=== PATIENT | female | born 1945 | race Caucasian/White ===

== ENCOUNTER 2018-04-25 08:47 | Day surgery (SDC) | payer MEDICARE ==
[~2018-04-25] VITALS: Ht 157.5 cm; Wt 77.1 kg
[~2018-04-25 08:47] MED LIST: AMLODIPINE5 MG PO; AMOXICILLIN500 MG PO; BENZONATATE200 MG PO; BL IBUPROFEN200 MG PO; CIPROFLOXACN500 MG PO; HUMIR1 SC; MEDDOSEPAK PO; ROBITUSSIN AC10 ML PO; ZITHROMAX250 MG PO; [UNRECOGNIZED DRUG - OTHER] SC
[2018-04-25 11:30] VITALS: BP 132/77
== END 2018-04-25 11:30 | disposition home or self-care (01) ==
LOC: ENDO 08:47
PROVIDERS: ATTEND Surgery
PROC: 0DJD8ZZ Inspection of Lower Intestinal Tract, Via Natural or Artificial Opening Endoscopic (ICD-10-PCS; principal; 2018-04-25)
DX: Z12.11 Encounter for screening for malignant neoplasm of colon (principal)

== ENCOUNTER 2022-02-01 15:32 | Observation (INO) | payer MEDICARE ==
[~2022-02-01] VITALS: Ht 157.5 cm; Wt 65.0 kg
--- NOTE | 2022-02-01 15:59 | NUR ---
PT TO ROOM VIA WC
[2022-02-01 17:14] LABS: HEMATOCRIT 42.5 % (37.0-47.0); HEMOGLOBIN 13.4 g/dl (12.0-16.0); IMMATURE GRANULOCYTES 0.6 % (0.0-5.0); MEAN CELL VOLUME 77.7 fL CALC (80.0-100.0); MEAN CORPUSCULAR HGB 24.5 pG CALC (26.0-32.0); MEAN CORPUSCULAR HGB CONC 31.5 g/dL CAL (32.0-36.0); NEUT# 2.39 thou/uL (2.00-7.15); RED BLOOD COUNT 5.47 mill/uL (4.20-5.60); RED CELL DISTRI WIDTH 16.6 % (11.5-15.5)
[2022-02-01 17:37] LABS: ALBUMIN 3.2 g/dL (3.2-5.0); ALKALINE PHOSPHATASE 90 u/l (38-126); ANION GAP 18 (6-22 (CALC)); BUN 11 mg/dL (8-23); BUN/CREATININE RATIO 17 (12-20 (CALC)); CARBON DIOXIDE 24 mmol/l (22-30); CHLORIDE 96 mmol/l (95-108); CREATININE 0.6 mg/dL (0.5-1.0); GFR FOR AFR.AMER. > 60 ML/MIN (>=60 (CALC)); GFR OTHER RACES > 60 ML/MIN (>=60 (CALC)); LIPASE 114 u/l (23-300); SGOT/AST 23 u/l (9-36); SODIUM 134 mmol/l (137-146); TOTAL PROTEIN 6.9 g/dL (6.3-8.2)
[2022-02-01 17:39] LABS: BILIRUBIN, TOTAL 0.9 mg/dL (0.0-1.4)
--- NOTE | 2022-02-01 19:38 | NUR ---
LYING IN BED RESTING QUIETLY. DENIES NAUSEA, VOMITING, PAIN OR DISCOMFORT. NO ACUTE DISTRESS NOTED AT THIS TIME. AT BEDSIDE. HOB ELEVATED FOR COMFORT. NOT ACUTE DISTRESS NOTED. WILL CONTINUE WITH PLAN OF CARE.
--- NOTE | 2022-02-01 21:13 | NUR ---
PATIENT TO BE ADMITTED TO HOSPITAL. SHE IS AWARE AND AGREEABLE WITH PLAN OF CARE. DENIES PAIN, DISCOMFORT, NAUSEA, OR VOMITING. NO ACUTE DISTRESS NOTED AT THIS TIME. CALL LIGHT IN REACH. WILL CONTINUE TO MONITOR.
--- NOTE | 2022-02-01 22:18 | NUR ---
PATIENT UP TO BSC. VOIDED APPROXIMATELY 200 ML. INCREASE HEART RATE ON WHILE GETTING UP. HR 123. PATIENT DENIES CHEST PAIN, DISCOMFORM, DIZZINESS, OR WEAKNESS. MD NOTIFIED. WILL CONTINUE WITH PLAN OF CARE.
[2022-02-01 22:41] VITALS: BP 145/74
--- NOTE | 2022-02-01 22:46 | NUR ---
BEDSIDE REPORT GIVEN TO [place] ROBLEDO ON TELE. ALERT AND PLEASANT. DENIES PAIN OR DISCOMFORYT. NO ACUTE DISTRESS NOTED. CALL LIGHT IN REACH. BELONGINGS [employer] JACKET, APPLE DRESS, AND BLACK SHOES SENT TO FLOOR WITH PATIENT. NO ACUTE DISTRESS NOTED.
[2022-02-02] VITALS (7 sets, daily range): BP systolic 132–148; BP diastolic 66–77
[2022-02-02 06:04] LABS: MEAN CELL VOLUME 77.1 fL CALC (80.0-100.0); MEAN CORPUSCULAR HGB 24.5 pG CALC (26.0-32.0); MEAN CORPUSCULAR HGB CONC 31.8 g/dL CAL (32.0-36.0); RED BLOOD COUNT 4.45 mill/uL (4.20-5.60); RED CELL DISTRI WIDTH 16.5 % (11.5-15.5)
[2022-02-02 06:07] LABS: HEMATOCRIT 34.3 % (37.0-47.0); HEMOGLOBIN 10.9 g/dl (12.0-16.0)
[2022-02-02 06:42] LABS: ANION GAP 11 (6-22 (CALC)); BUN 8 mg/dL (8-23); BUN/CREATININE RATIO 17 (12-20 (CALC)); CARBON DIOXIDE 23 mmol/l (22-30); CHLORIDE 102 mmol/l (95-108); CREATININE 0.5 mg/dL (0.5-1.0); GFR FOR AFR.AMER. > 60 ML/MIN (>=60 (CALC)); GFR OTHER RACES > 60 ML/MIN (>=60 (CALC)); MAGNESIUM 1.6 mg/dL (1.6-2.3); POTASSIUM 3.6 mmol/l (3.5-5.1); SODIUM 134 mmol/l (137-146)
--- NOTE | 2022-02-02 08:00 | NUR ---
GOT REPORT FROM TRIMMER AND BORER MACHINE OPERATOR NURSE. PATIENT IS AOX3. PATIENT C/O NOT HAVING A BM FOR 5 DAYS AND SHE FEELS LIKE SHE NEEDS TO. REQUESTED MEDICATION FOR IT. LISTENED TO BOWEL SOUNDS. ACTIVE X4 QUAD. MEDICATION GIVEN. CALL LIGHT AND BEDSIDE TABLE WITH IN REACH. ADVISED TO CALL IF SHE NEEDED ANYTHING.
[2022-02-02] MEDS ORDERED: AMITRIPTYLINE H10 MG PO (10:20)
--- NOTE | 2022-02-02 12:00 | NUR ---
PATIENT SLEEPING IN BED NO SXS OF DISTRESS NOTED. CALL LIGHT AND BEDSIDE TABLE WITH IN REACH. FALL PRECAUTIONS IN PLACE.
--- NOTE | 2022-02-02 15:15 | NUR ---
Patient is screened for rehab intervention and no PT needs are identified at this time althoughshe may benefit from ST intervention if medical agrees
--- NOTE | 2022-02-02 16:00 | NUR ---
ASSISTED PATIENT TO BSC TO HAVE BM. PATIENT DENIES ANY DISTRESS.
--- NOTE | 2022-02-02 17:47 | NUR ---
PATIENT WAS EDUCATED TO USE THE CALL LIGHT WHEN SHE NEEDS TO USE THE COMODE, PATIENTS SPOUSE CONTINUED TO HELP HER INSTAED OF USING CALL LIGHT. INFORMED THE PATIENT THAT ITS WAS INPORTANT TO USE THE CALL LIGHT BEACUSE SHE IS A FALL RISK. BED ALARM ON, AND NURSE NOTIFIED.
--- NOTE | 2022-02-02 18:50 | NUR ---
PATIENT LYING IN BED ALERT AND ORIENTED X 4 COMPUTER CONSULTANT SHOW SINUS TACHYCARDIA AT 118 BPM DENIES SOB OR TROUBLE BREATHING. GENERALIZED WEAKNESS PRESENT. DISCUSSED PLAN OF CARE AND SAFETY STATERGIES TO PREVENT FALLS. PATIENT TRANSFERRED TO 271 CLOSER TO NURSING STATION FOR CLOSE OBSERVATION PATIENT USING BSC FREQUENTLY DUE TO BOWEL PREP FOR UPCOMING EGD AND COLONOSCOPY.
--- NOTE | 2022-02-02 23:30 | NUR ---
PATIENT RESTING QUIETLY IN BED NO ACUTE DISTRESS NOTED RESPIRATIONS EVEN AND UNLABORED. WIRELESS SALES REPRESENTATIVE SHOW SINUS TACHYCARDIA WITH OCCASSIONAL PVCS
[2022-02-03] VITALS (7 sets, daily range): BP systolic 142–175; BP diastolic 73–97
[2022-02-03 05:26] LABS: HEMATOCRIT 33.5 % (37.0-47.0); HEMOGLOBIN 10.7 g/dl (12.0-16.0); MEAN CELL VOLUME 77.4 fL CALC (80.0-100.0); MEAN CORPUSCULAR HGB 24.7 pG CALC (26.0-32.0); MEAN CORPUSCULAR HGB CONC 31.9 g/dL CAL (32.0-36.0); RED BLOOD COUNT 4.33 mill/uL (4.20-5.60); RED CELL DISTRI WIDTH 16.6 % (11.5-15.5)
[2022-02-03 05:44] LABS: ANION GAP 10 (6-22 (CALC)); BUN 8 mg/dL (8-23); BUN/CREATININE RATIO 19 (12-20 (CALC)); CARBON DIOXIDE 25 mmol/l (22-30); CHLORIDE 104 mmol/l (95-108); CREATININE 0.4 mg/dL (0.5-1.0); GFR FOR AFR.AMER. > 60 ML/MIN (>=60 (CALC)); GFR OTHER RACES > 60 ML/MIN (>=60 (CALC)); MAGNESIUM 1.6 mg/dL (1.6-2.3); POTASSIUM 3.4 mmol/l (3.5-5.1); SODIUM 136 mmol/l (137-146)
--- NOTE | 2022-02-03 07:00 | NUR ---
RECEIVED REPORT FROM SUPERVISOR VENDOR QUALITY RN. PATIENT IS DOWN IN THE OR FOR EGD AND COLONOSCOPY.
--- NOTE | 2022-02-03 08:00 | NUR ---
NO 8AM TELE READING. PATIENT DOWN IN OR.
--- NOTE | 2022-02-03 09:28 | NUR ---
RECEIVED PATIENT FROM OR VIA STRETCHER @ [id number]. bEDSIDE REPORT RECEIVED FROM HAT STEAMER. PATIENT IS AWAKE, A&O. PATIENT DENIES ANY PAIN OR DISCOMFORT AT THIS TIME. ASSESSMENT COMPLETED. STARTED PATIENT ON ICE CHIPS AND WILL CONTINUE DIET TOLERATED. BED IN LOWEST POSITION, FALL & SAFETY PRECAUTIONS IN PLACE, CALL LIGHT AND BEDSIDE TABLE WITHIN REACH.
--- NOTE | 2022-02-03 12:00 | NUR ---
PATIENT IS RESTING ON BED, ON A SEMI-FOWLERS POSITION. PATIENT'S IS IN THE ROOM WITH HER. PATIENT HAS TOLERATED ICE CHIPS, AND FLUIDS WELL, CURRENTLY WAITING ON HER LUNCH TRAY. PATIENT DENIES ANY PAIN AT THIS TIME. BED IN LOWEST POSITION, CALL LIGHT AND BEDSIDE TABLE WITHIN REACH.
[2022-02-03] MEDS ORDERED: CARAFATE1 GM/10 ML PO (12:42)
[2022-02-03] MEDS ORDERED: PROTONIX40 MG PO (12:42)
--- NOTE | 2022-02-03 14:09 | NUR ---
Discharge instructions given. Patient verbalizes understanding of same. Discharged in stable condition via Wheelchair to Home with staff. All belongings sent with pt.
[2022-02-07] MEDS ORDERED: AMOXICILLIN500 MG PO (13:48)
[2022-02-07] MEDS ORDERED: LEVOFLOXACIN500MG PO (13:48)
[2022-02-07] MEDS ORDERED: PROTONIX40 M2 PO (13:48)
== END 2022-02-03 14:09 | disposition home or self-care (01) ==
LOC: ED 15:32 → ED-I 20:10 → ED 20:31 → MS2 20:32
PROVIDERS: Nurse Practitioner; ADMIT Hospitalist; ATTEND Hospitalist
PROC: 0DJD8ZZ Inspection of Lower Intestinal Tract, Via Natural or Artificial Opening Endoscopic (ICD-10-PCS; principal; 2022-02-03)
PROC: 0DB68ZX Excision of Stomach, Via Natural or Artificial Opening Endoscopic, Diagnostic (ICD-10-PCS; 2022-02-03)
DX: K29.00 Acute gastritis without bleeding (principal); B96.81 Helicobacter pylori [H. pylori] as the cause of diseases classified elsewhere; K21.9 Gastro-esophageal reflux disease without esophagitis; K31.7 Polyp of stomach and duodenum; K64.8 Other hemorrhoids; K44.9 Diaphragmatic hernia without obstruction or gangrene; K57.30 Diverticulosis of large intestine without perforation or abscess without bleeding; I10 Essential (primary) hypertension; M06.9 Rheumatoid arthritis, unspecified; F32.A Depression, unspecified; Z20.822 Contact with and (suspected) exposure to COVID-19
CPT/HCPCS: J1650; Q9967; S0164